=== PATIENT | female | born 1955 | race Caucasian/White ===

== ENCOUNTER 2017-01-10 20:08 | Emergency (ER) | payer OTHER, MEDICARE ==
[~2017-01-10] VITALS: Ht 167.6 cm; Wt 102.1 kg
[2017-01-10 20:21] VITALS: BP 122/79
[2017-01-10 20:41] LABS: ABSOLUTE BASOPHIL COUNT 0 /CUMM (0.0-0.2); ABSOLUTE EOSINOPHIL COUNT 0.1 /CUMM (0.0-0.7); ABSOLUTE GRANULOCYTE CT 4.6 /CUMM (1.4-6.5); ABSOLUTE LYMPH COUNT 0.6 /CUMM (1.2-3.4); ABSOLUTE MONOCYTE COUNT 0.3 /CUMM (0.10-0.60); BASOPHIL % 0.1 % (0.0-2.0); EOSINOPHIL % 2.1 % (0-5); HEMATOCRIT 33.5 % (37-47); MEAN CORPUSCULAR HGB 30.8 PG (27.0-31.0); MEAN CORPUSCULAR HGB CONC 33.5 G/DL (33.0-37.0); MEAN PLATELET VOLUME 7.6 FL (7.4-10.4); PLATELET COUNT 194 /CUMM (130-400); RED BLOOD CELL CT 3.64 /CUMM (4.20-5.40); WHITE BLOOD CELL COUNT 5.7 /CUMM (4.8-10.8)
--- NOTE | 2017-01-10 21:54 | ED GI/GU/ABDOMINAL COMPLAINT ---
History of Present Illness General Chief Complaint: Female Urogenital Problems Stated Complaint: UNABLE TO URINATE Source: patient Exam Limitations: no limitations Vital Signs & Intake/Output Vital Signs & Intake/Output Vital Signs Date Time Temp Pulse Resp B/P Pulse O2 O2 Flow FiO2 Ox Delivery Rate 01/10 2021 97.9 106 18 122/79 95 Room Air ED Intake and Output 01/11 0000 01/10 1200 Intake Total Output Total Balance Patient 225 lb Weight Allergies Coded Allergies: clarithromycin (From BIAXIN) (HEADACHE 01/10/17) codeine (DIZZY, NAUSEA 01/10/17) ramelteon (From ROZEREM) (UNKNOWN 12/24/15) risperidone (From RISPERDAL) (UNKNOWN 12/24/15) Reconcile Medications Carisoprodol 350 MG TABLET 1 TAB PO TID MUSCLE SPASMS (Reported) Eszopiclone 2 MG TABLET 1 TAB PO QPM SLEEP (Reported) Gabapentin 400 MG CAPSULE 1 CAP PO 4XDAILY NERVE PAIN (Reported) Oxycodone HCl 10 MG TABLET 1 TAB PO Q8H PRN PAIN (Reported) Rosuvastatin Calcium (Crestor) 20 MG TABLET 1 TAB PO DAILY CHOLESTEROL ( Reported) Tamsulosin HCl (Flomax) 0.4 MG CAP.ER.24H 1 CAP PO DAILY URINE RETENTION Verapamil HCl (Verapamil ER) 240 MG CAP24H.PEL 1 CAP PO DAILY BP (Reported) Triage Note: PT TO ED C/O "ONLY ABLE TO DRIBBLE URINE SINCE LAST NIGHT" DENIES PAIN AT THIS TIME. "LAST LARGER QUANTITY OF URINE WAS 2 DAYS AGO" DENIES PAIN WITH URINATION Triage Nurses Notes Reviewed? yes ? N Is pt currently ? No Onset: Abrupt Duration: constant Timing: multiple episodes today Quality/Severity: fullness Severity Numbers: 2 Location: suprapubic Radiation: no radiation Activities at Onset: none HPI: Patient is a 61-year-old female with past medical history of hypertension and hyperlipidemia, and chronic pain currently on narcotic AND muscle relaxer who presents emergency stating that since last evening she's been complaining of scant urination production Positive of urgency and frequency of urination Does describe of abdominal fullness and bloating Patient is able tolerate by mouth denies any nausea or vomiting vaginal bleeding or discharge or back pain Denies any fever or chills (LEANN MOHR) Past History Travel History Traveled to [place] past 21 day No Medical History Any Pertinent Medical History? 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 No (LEANN MOHR) Review of Systems Review of Systems Constitutional: Reports: no symptoms. EENTM: Reports: no symptoms. Respiratory: Reports: no symptoms. Cardiovascular: Reports: no symptoms. GI: Reports: see HPI. Genitourinary: Reports: see HPI. Musculoskeletal: Reports: no symptoms. Skin: Reports: no symptoms. Neurological/Psychological: Reports: no symptoms. Hematologic/Endocrine: Reports: no symptoms. Immunologic/Allergic: Reports: no symptoms. All Other Systems: Reviewed and Negative (LEANN MOHR) Physical Exam Physical Exam General Appearance: no apparent distress, obese Gastrointestinal: normal bowel sounds, soft, MILD SUPRAPUBIC POINT TENDERNESS, NO RIGHT LOWER QUADRANT PAIN NO LEFT LOWER QUADRANT PAIN. Comments: Well-developed well-nourished person in no acute distress HEENT: Normal EENT exam, Neck: Supple, no lymphadenopathy, normal range of motion without pain or tenderness Back: Nontender, no CVA tenderness. Cardiovascular: Regular rate and rhythms no murmurs rubs or gallops, normal JVP Respiratory: Chest nontender. No respiratory distress.breath sounds clear to auscultation bilaterally Extremity: No edema, no calf tenderness to palpation, normal and equal pulses. Neuro: Alert oriented x3, motor sensory normal, Skin: No appreciable rash on exposed skin, skin is warm and dry. Psych: Mood and affect is normal, memory and judgment is normal. Core Measures ACS in differential dx? No Severe Sepsis Present: No Septic Shock Present: No (LEANN MOHR) Progress Differential Diagnosis: AAA, AMI, appendicitis, biliary colic, bowel obstruction , colon cancer, cholecystitis, diverticulitis, ectopic , endometritis, esophageal varices, gastritis, hepatitis, hernia, hemorrhoids, ischemic bowel, inflamm bowel dis, intrauterine , kidney stone, Jayda-Cory tear, ovarian cyst, ovarian torsion, pancreatitis, PID/cervicitis, peptic ulcer, PUD/ GERD, perforated viscous, SBO, threatened AB, UTI/pyelo Plan of Care: Orders Procedure Date/time Status Straight Cath 01/11 2208 Active CULTURE,URINE 01/10 2026 Active URINALYSIS 01/10 2026 Complete COMPREHENSIVE METABOLIC PANEL 01/10 2026 Complete CBC WITHOUT DIFFERENTIAL 01/10 2026 Complete Laboratory Tests 01/10/172044: Urine Color YEL, Urine Clarity CLEAR, Urine pH 7.0, Ur Specific [place] 1.020, Urine Protein NEG, Urine Ketones NEG, Urine Nitrite NEG, Urine Bilirubin NEG, Urine Urobilinogen 1.0, Ur Leukocyte Esterase NEG, Ur Microscopic SEDIMENT EXAMINED, Urine RBC 3-5, Urine WBC 1-3 H, Ur Epithelial Cells FEW, Urine Bacteria FEW H, Urine Hemoglobin SMALL H, Urine Glucose NEG 01/10/172033: Anion Gap 11, Estimated GFR > 60, BUN/Creatinine Ratio 25.0, Glucose 102 H, Calcium 9.7, Total Bilirubin 0.5, AST 22, ALT 38, Alkaline Phosphatase 95, Total Protein 6.6, Albumin 3.9, Globulin 2.7, Albumin/Globulin Ratio 1.4, CBC w Diff NO MAN DIFF REQ, RBC 3.64 L, MCV 92.0, MCH 30.8, RDW 15.0 H, MPV 7.6, Gran % 81.0 H, Lymphocytes % 10.6 L, Monocytes % 6.2, Eosinophils % 2.1, Basophils % 0.1, Absolute Granulocytes 4.6, Absolute Lymphocytes 0.6 L, Absolute Monocytes 0.3, Absolute Eosinophils 0.1, Absolute Basophils 0, PUBS MCHC 33.5 Microbiology 01/10 2045 URINE ROUT: Urine Culture - RECD Patient currently is in no apparent distress, Patient was able to produce urine while in the emergency room 01/10/2017 10:36:50 PM again was able to urinate for second time in the emergency room. Patient had a Powers straight catheter placed and which 200 mL of straw-colored urine was removed patient also had significant resolution of suprapubic fullness. Upon discharge patient looks well no apparent distress patient has no right lower quadrant pain or appendicitis at this time. Patient was strongly advised to follow up with urology and she will comply (LEANN MOHR) Initial ED EKG: none (LEANN MOHR) Departure Departure Disposition: HOME OR SELF CARE Condition: Stable Clinical Impression Primary Impression: Urinary retention Referrals: ALLISON JACKSON,ALEM ROBERTSON MD,SHANA (PCP/Family) Additional Instructions: Tomorrow if symptoms still continue follow-up with urologist Dr. RAO'S. Please try to limit the use of pain medication as this may be a cause of YOUR symptoms. If symptoms worsen return to the emergency room. Begin the PRESCRIPTION of Flomax as directed for your symptoms. If symptoms worsen return to emergency room Departure Forms: Customer Survey General Discharge Information Prescriptions: Current Visit Scripts Tamsulosin HCl (Flomax) 1 CAP PO DAILY #20 CAP (LEANN MOHR) PA/TRANSPLANT CASE MANAGER Co-Sign Statement Statement: ED Attending supervision documentation- [X] I saw and evaluated the patient. I have also reviewed all the pertinent lab results and diagnostic results. I agree with the findings and the plan of care as documented in the PA's/TRANSPLANT CASE MANAGER's documentation. [X] I have reviewed the ED Record and agree with the PA's/TRANSPLANT CASE MANAGER's documentation. [] Additions or exceptions (if any) to the PAs/TRANSPLANT CASE MANAGER's note and plan are summarized below: [] (HIEU JACKSON,BILL Dunn)
[2017-01-10] MEDS ORDERED: OXYCODONE HCL10 M2 PO (22:07)
[2017-01-10] MEDS ORDERED: CARISOPRODOL350 M1 PO (22:07)
[2017-01-10] MEDS ORDERED: CRESTOR20 M2 PO (22:08)
[2017-01-10] MEDS ORDERED: ESZOPICLONE2 M1 PO (22:08)
[2017-01-10] MEDS ORDERED: GABAPENTIN400 M2 PO (22:08)
[2017-01-10] MEDS ORDERED: VERAPAMIL ER240 MG PO (22:08)
[2017-01-10] MEDS ORDERED: FLOMAX0.4 M1 PO (23:06)
== END 2017-01-10 23:13 ==
LOC: ERH 20:08
PROVIDERS: Emergency Medicine
DX: R33.9 Retention of urine, unspecified (principal)
CPT/HCPCS: 81001; 87086

== ENCOUNTER 2017-02-20 03:39 | Emergency (ER) | payer OTHER, MEDICARE ==
[~2017-02-20] VITALS: Ht 167.6 cm; Wt 98.4 kg
[~2017-02-20 03:39] MED LIST: CARISOPRODOL350 M1 PO; CRESTOR20 M2 PO; ESZOPICLONE2 M1 PO; FLOMAX0.4 M1 PO; GABAPENTIN400 M2 PO; OXYCODONE HCL10 M2 PO; VERAPAMIL ER240 MG PO
--- NOTE | 2017-02-20 03:49 | ED SYNCOPE COMPLAINT ---
See Addendum History of Present Illness General Chief Complaint: General Adult Stated Complaint: NEAR SYNCOPE, NOSE BLEED Source: patient Exam Limitations: no limitations Vital Signs & Intake/Output Vital Signs & Intake/Output Vital Signs Date Time Temp Pulse Resp B/P B/P Pulse O2 O2 Flow FiO2 Mean Ox Delivery Rate 02/20 1054 101 151/71 02/20 1007 99.2 80 20 157/72 96 Room Air 02/20 0844 99.0 78 20 145/61 96 Room Air 02/20 0753 97.0 80 20 149/67 98 Room Air 02/20 0625 96.7 89 18 147/67 97 Room Air 02/20 0407 Room Air 02/20 0347 96.8 79 18 139/77 95 Room Air Allergies Coded Allergies: clarithromycin (From BIAXIN) (HEADACHE 01/10/17) codeine (DIZZY, NAUSEA 01/10/17) ramelteon (From ROZEREM) (UNKNOWN 12/24/15) risperidone (From RISPERDAL) (UNKNOWN 12/24/15) Reconcile Medications Carisoprodol 350 MG TABLET 1 TAB PO TID MUSCLE SPASMS (Reported) Eszopiclone 2 MG TABLET 1 TAB PO QPM SLEEP (Reported) Gabapentin 400 MG CAPSULE 1 CAP PO 4XDAILY NERVE PAIN (Reported) Oxycodone HCl 10 MG TABLET 1 TAB PO Q8H PRN PAIN (Reported) Rosuvastatin Calcium (Crestor) 20 MG TABLET 1 TAB PO DAILY CHOLESTEROL ( Reported) Tamsulosin HCl (Flomax) 0.4 MG CAP.ER.24H 1 CAP PO DAILY URINE RETENTION Verapamil HCl (Verapamil ER) 240 MG CAP24H.PEL 1 CAP PO DAILY BP (Reported) Triage Note: PT BIBA FROM HOME C/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 PT SOB, STATES FEELS A LITTLE LIGHT HEADED. 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 DR TAYLOR AT BEDSIDE TO FE PT ON PT ARRIVAL TO ROOM Triage Nurses Notes Reviewed? yes Timing: recent history Precipitating Factors: lightheadedness Context: s/p surgery for deviated septum yesterday Episode Description: see below Loss of Consciousness: brief (seconds) Associated Symptoms: lightheadedness HPI: 62 yo woman h/o deviated septum repair yesterday, presents with epistaxis and syncopal episode. She notes, "I had surgery yesterday for a deviated septum... The surgery went fine, but I found myself bleeding this morning.... I stood up from a chair... I started feeling dizzy and lightheaded.... And then I pased out." She notes no palpitations, chest pressure, chest pain. She now is feeling well. (DEEP JACKSON,SYED Orantes) Past History Travel History Traveled to [place] past 21 day No Medical History Any Pertinent Medical History? 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 No (DEEP JACKSON,SYED Orantes) Review of Systems Review of Systems Constitutional: Reports: no symptoms. EENTM: Reports: no symptoms. Respiratory: Reports: no symptoms. Cardiovascular: Reports: no symptoms. GI: Reports: no symptoms. Genitourinary: Reports: no symptoms. Musculoskeletal: Reports: no symptoms. Skin: Reports: no symptoms. Neurological/Psychological: Reports: no symptoms. All Other Systems: Reviewed and Negative (DEEP JACKSON,SYED Orantes) Physical Exam Physical Exam General Appearance: well developed/nourished, mild distress Head: atraumatic, normal appearance Eyes: Bilateral: normal appearance. Ears, Nose, Throat: both nares are packed... left nare.. no bleeding...... right nare, mild oozing blood. Neck: normal inspection, supple, full range of motion Respiratory: normal breath sounds, chest non-tender, no respiratory distress, quiet respiration, lungs clear Cardiovascular: regular rate/rhythm Gastrointestinal: normal bowel sounds, soft, non-tender, no organomegaly Back: normal inspection Extremities: normal inspection, normal capillary refill, normal range of motion, no edema Psychiatric: awake, alert, oriented x 3 Cranial Nerves: normal hearing, normal speech Motor/Sensory: motor deficit, sensory deficit, pronator drift Skin: intact, normal color, warm/dry Core Measures ACS in differential dx? No CVA/TIA Diagnosis: No Severe Sepsis Present: No Septic Shock Present: No (DEEP JACKSON,SYED Orantes) Progress Differential Diagnosis: aortic valve, seizure, vasodepressor syncope Plan of Care: Orders Procedure Date/time Status TROPONIN LEVEL 02/21 740 Complete EKG 02/21 740 Active TROPONIN LEVEL 02/20 349 Complete COMPREHENSIVE METABOLIC PANEL 02/20 349 Complete CBC WITHOUT DIFFERENTIAL 02/20 349 Complete EKG 02/20 349 Active Laboratory Tests 02/20/17 0745: Troponin I < 0.01 02/20/17 0439: Anion Gap 15, Estimated GFR > 60, BUN/Creatinine Ratio 30.0 H, Glucose 98, Calcium 10.0, Total Bilirubin 0.4, AST 28, ALT 30, Alkaline Phosphatase 96, Troponin I < 0.01, Total Protein 7.4, Albumin 4.5, Globulin 2.9, Albumin/ Globulin Ratio 1.6 02/20/17 0359: CBC w Diff NO MAN DIFF REQ, RBC 3.85 L, MCV 90.8, MCH 31.1 H, RDW 13.4, MPV 7.7, Gran % 65.7, Lymphocytes % 27.2, Monocytes % 5.9, Eosinophils % 0.6, Basophils % 0.6, Absolute Granulocytes 5.2, Absolute Lymphocytes 2.2, Absolute Monocytes 0.5, Absolute Eosinophils 0, Absolute Basophils 0, PUBS MCHC 34.2 Diagnostic Imaging: Viewed by Me: Radiology Read, CT Scan. Discussed w/RAD: Radiology Read, CT Scan. Radiology Impression: head ct... neg...full report below. CXR Impression: no acute abnormality, no infiltrates, normal size heart, normal mediastinum Initial ED EKG: flattened t waves, v3-v6, flipped T III, new from prior ekg. Hand-Off Endorsed To: TOM JACSKON,IRVING Holguin Endorsed Time: 0700 Pending: consult, labs Comments: PATIENT: NOLVIA MAYER PRESENT AGE: 62 PATIENT ACCOUNT NO: [id number] : 56 LOCATION: [facility] ORDERING PHYSICIAN: SYED TAYLOR MD SERVICE DATE: 02/20/17 EXAM TYPE: RAD - XRY-PORTABLE CHEST XRAY EXAMINATION: XR PORTABLE CHEST CLINICAL INFORMATION: Syncope COMPARISON: 03/06/2008 TECHNIQUE: Portable frontal view of the chest was obtained. FINDINGS: The lungs are well expanded. There is no focal consolidation, edema, or effusion. No pneumothorax. The cardiomediastinal silhouette is within normal limits. No acute osseous abnormality. IMPRESSION: Clear lungs. DICTATED BY: SHANE OLVERA MD DATE/TIME DICTATED:02/20/17441 AVIATION SAFETY EQUIPMENT TECHNICIAN:ELEANOR DATE/TIME TRANSCRIBED:02/20/17441 CONFIDENTIAL, DO NOT COPY WITHOUT APPROPRIATE AUTHORIZATION. <Electronically signed in Other Vendor System> SIGNED BY: SHANE OLVERA MD 02/20 PATIENT: NOLVIA MAYER PRESENT AGE: 62 PATIENT ACCOUNT NO: [id number] : 56 LOCATION: [facility] ORDERING PHYSICIAN: SYED TAYLOR MD SERVICE DATE: 02/20/17 EXAM TYPE: CAT - CT HEAD WO IV CONTRAST EXAMINATION: CT HEAD WITHOUT CONTRAST CLINICAL INFORMATION: Syncope. Hit head. COMPARISON: 09/16/2016 TECHNIQUE: Contiguous axial imaging was performed from the skull base to vertex without intravenous contrast. DLP: 619 mGy-cm. FINDINGS: There is no evidence of acute intracranial hemorrhage or territorial infarction. No abnormal mass effect or midline shift is seen. Mast to white matter differentiation is well preserved. No extra-axial fluid collections are identified. No hydrocephalus. Proportional prominence of the ventricles and sulcal spaces is consistent with mild volume loss. There is no abnormal attenuation within the brain parenchyma. The osseous structures and soft tissues are normal. The mastoid air cells are well aerated. Small air-fluid level in the right sphenoid sinus. Mild opacification of the right ethmoid air cells. The remaining paranasal sinuses which are visualized are unremarkable. IMPRESSION: No acute intracranial pathology. DICTATED BY: SHANE OLVERA MD DATE/TIME DICTATED:02/20/17424 AVIATION SAFETY EQUIPMENT TECHNICIAN:ELEANOR DATE/TIME TRANSCRIBED:02/20/17424 CONFIDENTIAL, DO NOT COPY WITHOUT APPROPRIATE AUTHORIZATION. <Electronically signed in Other Vendor System> SIGNED BY: SHANE OLVERA MD 02/20 7821 (DEEP JACKSON,SYED Orantes) Repeat EKG: unchanged Comments: 02/20/2017 7:34:26 AM patient signed out to me by Dr. Taylor at shift twisting frame changer. 02/20/2017 10:02:47 AM I have reevaluated Nolvia and although she is experiencing more bleeding from her septoplasty and thought normal (per her discussion with her ear nose and throat doctors nurse) she is otherwise without specific complaint. I have just contacted Dr. Butt who will evaluate Nolvia as soon as possible, he is beginning his morning rounds). 02/20/2017 12:03:57 PM patient has been evaluated by Dr. Butt and he will follow-up in his office with Nolvia. I have also discussed her case with Dr. Churchill covering for Dr. Stack, who feels the patient can try some Afrin nasal spray to help control bleeding but that she should expect some postoperative bleeding. She should follow-up in Dr. Stack's office. (TOM JACKSON,IRVING Holguin) Departure Departure Disposition: HOME OR SELF CARE Condition: Stable Referrals: SHANA ROBERTSON MD (PCP/Family) Departure Forms: Customer Survey General Discharge Information Comments 02/20/17, 5:54am.... pt with change in EKG from baseline... discussed with dr. Butt who will evaluate patient in ED. Will also repeat troponin/ekg. continue iv fluids. (DEEP JACKSON,SYED Orantes) Departure Clinical Impression Primary Impression: Vasovagal syncope Secondary Impressions: Epistaxis Additional Instructions: Afrin nasal spray to help control bleeding. Expect that he will have some postoperative bleeding over the next few days. Continue to change the gauze pads in the front of the nose as necessary. Follow-up with Dr. Butt as discussed. Notify your primary care doctor of this emergency department visit and treatment plan. Return if any concerns or sudden worsening. Thank you for choosing the [facility] Emergency Department for your care. It was a pleasure to serve you today. Irving Valdivia M.D. [facility] (TOM JACKSON,IRVING Holguin)
[2017-02-20 04:24] LABS: ABSOLUTE BASOPHIL COUNT 0 /CUMM (0.0-0.2); ABSOLUTE EOSINOPHIL COUNT 0 /CUMM (0.0-0.7); ABSOLUTE GRANULOCYTE CT 5.2 /CUMM (1.4-6.5); ABSOLUTE LYMPH COUNT 2.2 /CUMM (1.2-3.4); ABSOLUTE MONOCYTE COUNT 0.5 /CUMM (0.10-0.60); BASOPHIL % 0.6 % (0.0-2.0); EOSINOPHIL % 0.6 % (0-5); GRANULOCYTE % 65.7 % (42.2-75.2); HEMATOCRIT 34.9 % (37-47); MEAN CORPUSCULAR HGB 31.1 PG (27.0-31.0); MEAN CORPUSCULAR HGB CONC 34.2 G/DL (33.0-37.0); MEAN CORPUSCULAR VOLUME 90.8 FL (81.0-99.0); MEAN PLATELET VOLUME 7.7 FL (7.4-10.4); PLATELET COUNT 333 /CUMM (130-400); RBC DISTRIBUTION WIDTH 13.4 % (11.5-14.5); RED BLOOD CELL CT 3.85 /CUMM (4.20-5.40); WHITE BLOOD CELL COUNT 7.9 /CUMM (4.8-10.8)
--- NOTE | 2017-02-20 04:35 | CT SCAN REPORT ---
EXAMINATION: CT HEAD WITHOUT CONTRAST CLINICAL INFORMATION: Syncope. Hit head. COMPARISON: 09/16/2016 TECHNIQUE: Contiguous axial imaging was performed from the skull base to vertex without intravenous contrast. DLP: 619 mGy-cm. FINDINGS: There is no evidence of acute intracranial hemorrhage or territorial infarction. No abnormal mass effect or midline shift is seen. Mast to white matter differentiation is well preserved. No extra-axial fluid collections are identified. No hydrocephalus. Proportional prominence of the ventricles and sulcal spaces is consistent with mild volume loss. There is no abnormal attenuation within the brain parenchyma. The osseous structures and soft tissues are normal. The mastoid air cells are well aerated. Small air-fluid level in the right sphenoid sinus. Mild opacification of the right ethmoid air cells. The remaining paranasal sinuses which are visualized are unremarkable. IMPRESSION: No acute intracranial pathology.
--- NOTE | 2017-02-20 04:45 | RADIOLOGY REPORT ---
EXAMINATION: XR PORTABLE CHEST CLINICAL INFORMATION: Syncope COMPARISON: 03/06/2008 TECHNIQUE: Portable frontal view of the chest was obtained. FINDINGS: The lungs are well expanded. There is no focal consolidation, edema, or effusion. No pneumothorax. The cardiomediastinal silhouette is within normal limits. No acute osseous abnormality. IMPRESSION: Clear lungs.
[2017-02-20 10:54] VITALS: BP 151/71
[2017-02-20] MEDS ORDERED: PERCOCET 5-3251 EACH PO (12:27)
--- NOTE | 2017-02-20 13:56 | Cons- Cardiology ---
General Information and HPI Consulting Request Date of Consult: 02/20/17 Requested By: Dr. Taylor Reason for Consult: Syncope Source of Information: patient, family Exam Limitations: no limitations History of Present Illness: The patient is a very nice 62-year-old white female who is followed by Dr. Felix in [place]. On Tuesday, the patient had a septoplasty performed at [facility] [place]. Apparently the surgery went fine. She left with nasal packing. On Tuesday morning, the patient woke with ongoing bleeding noted. At that time, the patient was feeling somewhat lightheaded and weak. Her notes that she stood up from her chair and in the process of starting to walk, she became lightheaded and passed out. She woke shortly after lying on the floor. She was brought to the emergency room and evaluated. There was no evidence of any other cardiac symptoms. There was no chest discomfort shorts of breath palpitations etc. Since arrival in the emergency room, there has been no evidence of any arrhythmias on the lunchroom monitor. I was asked see the patient for further evaluation of her syncopal episode. At the moment, the patient is feeling well. Her primary concern is her ongoing nasal bleeding. Allergies/Medications Allergies: Coded Allergies: clarithromycin (From BIAXIN) (HEADACHE 01/10/17) codeine (DIZZY, NAUSEA 01/10/17) ramelteon (From ROZEREM) (UNKNOWN 12/24/15) risperidone (From RISPERDAL) (UNKNOWN 12/24/15) Home Med List: Carisoprodol 350 MG TABLET 1 TAB PO TID MUSCLE SPASMS (Reported) Eszopiclone 2 MG TABLET 1 TAB PO QPM SLEEP (Reported) Gabapentin 400 MG CAPSULE 1 CAP PO 4XDAILY NERVE PAIN (Reported) Oxycodone HCl 10 MG TABLET 1 TAB PO Q8H PRN PAIN (Reported) Oxycodone HCl/Acetaminophen (Percocet 5-325 MG Tablet) 5 MG-325 MG TABLET 1 TAB PO Q6P PRN pain Rosuvastatin Calcium (Crestor) 20 MG TABLET 1 TAB PO DAILY CHOLESTEROL ( Reported) Tamsulosin HCl (Flomax) 0.4 MG CAP.ER.24H 1 CAP PO DAILY URINE RETENTION Verapamil HCl (Verapamil ER) 240 MG CAP24H.PEL 1 CAP PO DAILY BP (Reported) Current Medications: Current Medications Sig/Cathie Start time Last Medication Dose Route Stop Time Status Admin Oxycodone/ 0 .STK-MED ONE 02/20 0921 DC Acetaminophen PO Oxycodone/ 1 TAB ONCE ONE 02/20 0900 DC 02/20 Acetaminophen PO 02/20 0901 0916 Oxycodone/ 0 .STK-MED ONE 02/20 0651 DC Acetaminophen PO Oxycodone/ 1 TAB ONCE ONE 02/20 0645 DC 02/20 Acetaminophen PO 02/20 0646 0648 Sodium Chloride 1,000 ML BOLUS ONE 02/20 0400 DC 02/20 IV 02/20 0459 0358 Past History Travel History Traveled to [place] past 21 day No Medical History Neurological: NONE EENT: NONE Cardiovascular: hypertension, hyperlipidemia, THORACIC OUTLET SYNDROME Respiratory: NONE Gastrointestinal: NONE Hepatic: NONE Renal: NONE Musculoskeletal: CHRONIC RT SHOULDER PAIN Psychiatric: NONE Endocrine: NONE Blood Disorders: NONE Cancer(s): NONE CHIEF NURSE/Reproductive: NONE Surgical History Surgical History: non-contributory Exam & Diagnostic Data Vital Signs and I&O Vital Signs Date Time Temp Pulse Resp B/P B/P Pulse O2 O2 Flow FiO2 Mean Ox Delivery Rate 02/20 1054 101 151/71 02/20 1007 99.2 80 20 157/72 96 Room Air 02/20 0844 99.0 78 20 145/61 96 Room Air 02/20 0753 97.0 80 20 149/67 98 Room Air 02/20 0625 96.7 89 18 147/67 97 Room Air 02/20 0407 Room Air 02/20 0347 96.8 79 18 139/77 95 Room Air Intake & Output 02/20 1600 02/20 0802/20 0000 02/19 1600 02/19 0802/19 0000 Intake Total 500 Output Total Balance 500 Intake, IV 500 Patient 217 lb Weight Weight Reported by Patient Measurement Method Physical Exam: General Appearance: well developed/nourished, mild distress Head: atraumatic, normal appearance Eyes: Normal Ears, Nose, Throat: both nares are packed... left nare.. no bleeding...... right nare, mild oozing blood. Neck: normal inspection, supple, full range of motion, JVP normal, carotid upstroke normal bilaterally Respiratory: normal breath sounds, chest non-tender, no respiratory distress, quiet respiration, lungs clear Cardiovascular: regular rate/rhythm, 6 systolic murmur left upper sternal border Gastrointestinal: normal bowel sounds, soft, non-tender, no organomegaly Extremities: normal inspection, normal capillary refill, normal range of motion, no edema Neurologic: Nonfocal Skin: Normal Labs/Narinder Results: Laboratory Tests 02/20 02/20 02/20 0745 0439 0359 Chemistry Sodium (137 - 145 mmol/L) 139 Potassium (3.5 - 5.1 mmol/L) 3.5 Chloride (98 - 107 mmol/L) 99 Carbon Dioxide (22 - 30 mmol/L) 25 Anion Gap (5 - 16) 15 BUN (7 - 17 mg/dL) 18 H Creatinine (0.5 - 1.0 mg/dL) 0.6 Estimated GFR (>60 ml/min) > 60 BUN/Creatinine Ratio (7 - 25 %) 30.0 H Glucose (65 - 99 mg/dL) 98 Calcium (8.4 - 10.2 mg/dL) 10.0 Total Bilirubin (0.2 - 1.3 mg/dL) 0.4 AST (14 - 36 U/L) 28 ALT (9 - 52 U/L) 30 Alkaline Phosphatase (<127 U/L) 96 Troponin I (< 0.11 ng/ml) < 0.01 < 0.01 Total Protein (6.3 - 8.2 g/dL) 7.4 Albumin (3.5 - 5.0 g/dL) 4.5 Globulin (1.9 - 4.2 gm/dL) 2.9 Albumin/Globulin Ratio (1.1 - 2.2 %) 1.6 Hematology CBC w Diff NO MAN DIFF REQ WBC (4.8 - 10.8 /CUMM) 7.9 RBC (4.20 - 5.40 /CUMM) 3.85 L Hgb (12.0 - 16.0 G/DL) 11.9 L Hct (37 - 47 %) 34.9 L MCV (81.0 - 99.0 FL) 90.8 MCH (27.0 - 31.0 PG) 31.1 H RDW (11.5 - 14.5 %) 13.4 Plt Count (130 - 400 /CUMM) 333 MPV (7.4 - 10.4 FL) 7.7 Gran % (42.2 - 75.2 %) 65.7 Lymphocytes % (20.5 - 51.1 %) 27.2 Monocytes % (1.7 - 9.3 %) 5.9 Eosinophils % (0 - 5 %) 0.6 Basophils % (0.0 - 2.0 %) 0.6 Absolute Granulocytes (1.4 - 6.5 /CUMM) 5.2 Absolute Lymphocytes (1.2 - 3.4 /CUMM) 2.2 Absolute Monocytes (0.10 - 0.60 /CUMM) 0.5 Absolute Eosinophils (0.0 - 0.7 /CUMM) 0 Absolute Basophils (0.0 - 0.2 /CUMM) 0 PUBS MCHC (33.0 - 37.0 G/DL) 34.2 Diagnostic Data EKG Results Normal sinus rhythm with nonspecific ST-T wave changes, the ST-T changes are slightly more pronounced than her prior available EKG from 2007. No other acute changes. CXR Results FINDINGS: The lungs are well expanded. There is no focal consolidation, edema, or effusion. No pneumothorax. The cardiomediastinal silhouette is within normal limits. No acute osseous abnormality. IMPRESSION: Clear lungs. Assessment/Plan Assessment/Plan Assessment: 1. Syncope-the patient's symptoms and presentation are most consistent with orthostatic or vasovagal syncope. I suspect this is multifactorial, related to her recent anesthesia, recent surgical procedure, lack of significant oral intake over the 24 hours prior to the event, ongoing issues with her nose and surgical bleeding, etc. On arrival to the emergency him, the patient was initially noted to be mildly orthostatic on assuming the sitting position with a lying blood pressure 142 and day sitting systolic blood pressure of 122. She was not able to stand at that time. Following 1 L of IV normal saline, she is currently stable with no evidence of any orthostatic changes. Her heart rate and rhythm at been stable throughout her stay here. At the moment, I do not see any evidence of any other significant acute cardiac issues. 2. History of hypertension 2. History of hyperlipidemia 4. Recent septoplasty with ongoing surgical site bleeding. Recommendations: -At the moment, the patient's ECG shows nonspecific changes and is not dramatically changed from her prior EKG of 9 years ago. In line-the patient has no other ongoing cardiac symptoms. -I discussed the situation in detail with the patient and her . -I would recommend allowing the patient ambulate with monitoring. If she remains stable and she can be discharged for follow-up with me as necessary as an outpatient. -In view of the ongoing bleeding from the patient's nose, I would consider discussing the situation with the patient's ENT surgeon prior to discharge from the emergency room. -The patient was instructed to take it easy for the next 2 days at home and maintain adequate hydration and avoid acute changes in position with close monitoring for any further lightheadedness. I gave the patient copy of my card with phone number so that she can contact me with any issues. Consult Acknowledgment - Thank you for your consult request.
--- NOTE | 2017-03-03 09:50 | OP PSYCH DISCHARGE ---
OUTPATIENT PSYCH DISCHARGE FIRST APPOINTMENT DATE: 08/06/08 LAST CONTACT DATE: 01/30/16 FOCUS OF TREATMENT- SYMPTOMS/ISSUES: -depressed mood -paranoid delusions TOTAL NUMBER OF SESSIONS: > 20 SESSIONS TYPE OF TREATMENT: INDIVIDUAL, MEDICATION STATUS OF LAST CONTACT: FOCUS OF TREATMENT WAS: RESOLVED REASON FOR DISCHARGE: MISSED APPOINTMENTS, NO FURTHER CONTACT DSM5/PS Stressors/Medical Prob Diagnosis' (DSM 5, Stressors, Medical): MDD,reccurent,severe,with psychotic features-in remission -financial problems, worsening of chronic pain Chronic pain HTN Current GAF: 70% Medication List Current Psychiatric Med(s): Zyprexa 5 mg po qhs Prozac 40 mg po bid
== END 2017-02-20 12:38 ==
LOC: ERH 03:39
PROVIDERS: Pediatrics
DX: R55 Syncope and collapse (principal); R04.0 Epistaxis; I10 Essential (primary) hypertension
CPT/HCPCS: 93005; 93010

== ENCOUNTER 2017-09-26 04:17 | Inpatient (IN) | payer OTHER, MEDICARE ==
[~2017-09-26] VITALS: Ht 167.6 cm; Wt 102.1 kg
[~2017-09-26 04:17] MED LIST changes: +PERCOCET 5-3251 EACH PO
--- NOTE | 2017-09-26 04:19 | ED AMS/SEIZURE/WEAK/DIZZY ---
History of Present Illness General Chief Complaint: Dizziness Stated Complaint: BIBA SYNCOPE Source: patient, EMS Exam Limitations: clinical condition Vital Signs & Intake/Output Vital Signs & Intake/Output Vital Signs Date Time Temp Pulse Resp B/P B/P Pulse O2 O2 Flow FiO2 Mean Ox Delivery Rate 09/26 0543 98.3 70 20 123/69 96 Nasal 2.0L Cannula 09/26 0446 120/70 09/26 0420 98.1 82 20 95 Room Air Allergies Coded Allergies: clarithromycin (From BIAXIN) (HEADACHE 01/10/17) codeine (DIZZY, NAUSEA 01/10/17) ramelteon (From ROZEREM) (UNKNOWN 12/24/15) risperidone (From RISPERDAL) (UNKNOWN 12/24/15) Reconcile Medications Amoxicillin 500 MG CAPSULE 500 MG PO DAILY RESPIRATORY INFECTION (Reported) Carisoprodol 350 MG TABLET 1 TAB PO TID MUSCLE SPASMS (Reported) Eszopiclone 2 MG TABLET 1 TAB PO QPM SLEEP (Reported) Gabapentin 400 MG CAPSULE 1 CAP PO 4XDAILY NERVE PAIN (Reported) Gabapentin (Neurontin) 800 MG TABLET 800 MG PO TID NERVE PAIN (Reported) Losartan (Cozaar) 100 MG TABLET (Unknown Dose) PO DAILY HIGH BLOOD PRESSURE ( Reported) Oxycodone HCl 10 MG TABLET 1 TAB PO Q8H PRN PAIN (Reported) Oxycodone HCl/Acetaminophen (Percocet 5-325 MG Tablet) 5 MG-325 MG TABLET 1 TAB PO Q6P PRN pain Rosuvastatin Calcium (Crestor) 20 MG TABLET 1 TAB PO DAILY CHOLESTEROL ( Reported) Tamsulosin HCl (Flomax) 0.4 MG CAP.ER.24H 1 CAP PO DAILY URINE RETENTION Verapamil HCl (Verapamil ER) 240 MG CAP24H.PEL 1 CAP PO DAILY BP (Reported) Triage Nurses Notes Reviewed? yes HPI: 62 yo woman presents with weakness. She shares that she has been feeling unwell x 5-6 days, with a mild cough, decreased oral intake. She was started on amoxicillin 3 days ago. Yesterday, she felt weak and dizzy "all day long.... I didn't have an appetite... I would stand up and get dizzy... I felt like I might pass out." She denies loss of consciousness or head injury. She denies chest pain, fever, chills, dysuria, abdominal pain, dyspnea. Her cough is mostly dry. Past History Medical History Any Pertinent Medical History? see below for history Neurological: NONE EENT: NONE Cardiovascular: hypertension, hyperlipidemia, THORACIC OUTLET SYNDROME Respiratory: NONE Gastrointestinal: NONE Hepatic: NONE Renal: NONE Musculoskeletal: CHRONIC RT SHOULDER PAIN Psychiatric: NONE Endocrine: NONE Blood Disorders: NONE Cancer(s): NONE RADARMAN/Reproductive: NONE Surgical History Surgical History: non-contributory Psychosocial History Who do you live with Other (see notes) What is your primary language German Family History Hx Contributory? No Review of Systems Review of Systems Constitutional: Reports: no symptoms. EENTM: Reports: no symptoms. Respiratory: Reports: no symptoms. Cardiovascular: Reports: no symptoms. GI: Reports: no symptoms. Genitourinary: Reports: no symptoms. Musculoskeletal: Reports: no symptoms. Skin: Reports: no symptoms. Neurological/Psychological: Reports: no symptoms. Hematologic/Endocrine: Reports: no symptoms. Immunologic/Allergic: Reports: no symptoms. All Other Systems: Reviewed and Negative Physical Exam Physical Exam General Appearance: well developed/nourished, mild distress Head: atraumatic, normal appearance Eyes: Bilateral: normal appearance, PERRL, EOMI. Ears, Nose, Throat: normal pharynx, dry mucosa Neck: normal inspection, supple, full range of motion Respiratory: normal breath sounds, chest non-tender, no respiratory distress Cardiovascular: regular rate/rhythm Gastrointestinal: normal bowel sounds, soft, non-tender Back: normal inspection, normal range of motion Extremities: normal range of motion Neurologic/Psych: no motor/sensory deficits, awake, alert, oriented x 3 Skin: cool extremities. poor skin turgor. Core Measures ACS in differential dx? No CVA/TIA Diagnosis No Sepsis Present: No Sepsis Focused Exam Completed? No Progress Differential Diagnosis: dehydration, renal failure, electrolyte abnormality, i doubt cardiac issues. Plan of Care: Orders Procedure Date/time Status BASIC ELECTROLYTES PLUS BUN&CR 09/27 06 Active Heart Healthy Diet 09/26 B Active LACTIC ACID 09/26 0733 Active PT Evaluate & Treat 09/26 06 Active Pathway - chart 09/26 06 Active House Staff 09/26 06 Active Pathway - chart 09/26 06 Active URINE OSMOLALITY 09/26 06 Active URINE LYTES, SPOT 09/26 06 Active Patient Data 09/26 0615 Active EKG 09/26 0611 Active Saline Lock 09/26 0607 Active Misc Message 09/26 0607 Active ED Holding Orders 09/26 06 Active Admit to inpatient 09/26 0607 Active Vital Signs 09/26 0607 Active Code Status 09/26 0607 Active RAPID VIRAL INFLUENZA A 09/26 0548 Complete Intake & Output 09/26 0441 Active TSH REFLEX 09/26 0440 Active SERUM OSMOLALITY 09/26 0440 Active B-TYPE NATRIURETIC PEP (BNP) 09/26 0440 Active LACTIC ACID 09/26 0433 Complete TROPONIN LEVEL 09/26 0419 Active PARTIAL THROMBOPLASTIN TIME 09/26 0419 Complete PROTHROMBIN TIME 09/26 0419 Complete COMPREHENSIVE METABOLIC PANEL 09/26 0419 Active CBC WITHOUT DIFFERENTIAL 09/26 0419 Complete EKG 09/26 0418 Active Lab Add-on Test 09/26 UNK Active VTE Mechanical Prophylaxis 09/26 UNK Active Vital Signs 09/26 UNK Active MISTAKE 09/26 UNK Active Activity/Ambulation 09/26 UNK Active Current Medications Sig/Cathie Start time Last Medication Dose Stop Time Status Admin Heparin Sodium 5,000 UNIT Q8 09/26 1400 AC (Porcine) Laboratory Tests 09/26/17 0440: Lactic Acid 1.7 09/26/17 0440: Anion Gap 13, Estimated GFR > 60, BUN/Creatinine Ratio 20.0, Glucose 109 H, Serum Osmolality Pending, Calcium 10.1, Total Bilirubin 0.4, AST 27, ALT 34, Alkaline Phosphatase 109, Troponin I < 0.01, [id number] Pept Pending, Total Protein 8.0, Albumin 4.7, Globulin 3.3, Albumin/Globulin Ratio 1.4, TSH & T3 &Free T4 Intrp Pending, PT 11.0, INR 1.05, APTT 29, CBC w Diff NO MAN DIFF REQ, RBC 4.68, MCV 88.0, MCH 30.1, RDW 13.3, MPV 7.4, Gran % 57.7, Lymphocytes % 30.2, Monocytes % 9.0, Eosinophils % 2.7, Basophils % 0.4, Absolute Granulocytes 2.3, Absolute Lymphocytes 1.2, Absolute Monocytes 0.4, Absolute Eosinophils 0.1, Absolute Basophils 0, PUBS MCHC 34.3 Microbiology 09/26 0550 NASOPHARYN: Influenza Virus A & B Rapid Smear - COMP Diagnostic Imaging: Viewed by Me: Radiology Read. Discussed w/RAD: Radiology Read. CXR Impression: no acute abnormality, no infiltrates, normal size heart, normal mediastinum, PATIENT: NOLVIA MAYER PRESENT AGE: 62 PATIENT ACCOUNT NO: [id number] : 56 LOCATION: [facility] ORDERING PHYSICIAN: Eber Taylor MD SERVICE DATE: 09/26/17 EXAM TYPE: RAD - XRY- PORTABLE CHEST XRAY EXAMINATION: XR PORTABLE CHEST CLINICAL INFORMATION: Syncope. COMPARISON: Chest radiograph dated 02/20/2017. TECHNIQUE: Portable frontal view of the chest was obtained. FINDINGS: Cardiac leads overlie the chest. No focal consolidation or effusion. Cardiac mediastinal silhouette is within normal limits. No pneumothorax. No acute osseous abnormality. IMPRESSION: No focal consolidation or effusion. DICTATED BY: David Salcedo MD DATE/TIME DICTATED:09/26/17515 BRAND EXECUTIVE:ELEANOR DATE/TIME TRANSCRIBED:515 CONFIDENTIAL, DO NOT COPY WITHOUT APPROPRIATE AUTHORIZATION. < Electronically signed in Other Vendor System> SIGNED BY: David Salcedo MD 09/26/17520 Initial ED EKG: afib, but likely artifact... ekg #2... nsr without acute changes. Departure Departure Disposition: STILL A PATIENT Condition: Stable Clinical Impression Primary Impression: Hyponatremia Secondary Impressions: Dehydration, Weakness Referrals: Jonathan Cali MD (PCP/Family) Departure Forms: Customer Survey General Discharge Information Admission Note Spoke With: Mary Vasquez MDkathryn Documentation of Exam: Documentation of any treatments & extenuating circumstances including Concerns Regarding Discharge (functional status, medication knowledge or non-compliance, living conditions, etc.) that warrant an admission rather than observation: pt with hyponatremia, weakness, was orthostatic by symptoms... likely due to dehydration/hypovolemia, possibly due to viral etiology vs bacterial process ( cxr negative for pneumonia).... pt merits electrolyte management, iv fluids, could consider continuing her oral abx, but I doubt iv abx are necessary. I doubt cva or primary cardiac event.
[2017-09-26 04:56] LABS: ABSOLUTE BASOPHIL COUNT 0 /CUMM (0.0-0.2); ABSOLUTE EOSINOPHIL COUNT 0.1 /CUMM (0.0-0.7); ABSOLUTE GRANULOCYTE CT 2.3 /CUMM (1.4-6.5); ABSOLUTE LYMPH COUNT 1.2 /CUMM (1.2-3.4); ABSOLUTE MONOCYTE COUNT 0.4 /CUMM (0.10-0.60); BASOPHIL % 0.4 % (0.0-2.0); EOSINOPHIL % 2.7 % (0-5); GRANULOCYTE % 57.7 % (42.2-75.2); HEMATOCRIT 41.1 % (37-47); MEAN CORPUSCULAR HGB 30.1 PG (27.0-31.0); MEAN CORPUSCULAR HGB CONC 34.3 G/DL (33.0-37.0); MEAN PLATELET VOLUME 7.4 FL (7.4-10.4); PLATELET COUNT 193 /CUMM (130-400); RBC DISTRIBUTION WIDTH 13.3 % (11.5-14.5); RED BLOOD CELL CT 4.68 /CUMM (4.20-5.40)
[2017-09-26 05:05] LABS: PTT 29 SEC (25-37)
[2017-09-26] MEDS ORDERED: NEURONTIN800 M2 PO (05:12)
[2017-09-26] MEDS ORDERED: COZAAR100 M1 PO (05:13)
[2017-09-26] MEDS ORDERED: AMOXICILLIN500 M2 PO (05:13)
--- NOTE | 2017-09-26 05:21 | RADIOLOGY REPORT ---
EXAMINATION: XR PORTABLE CHEST CLINICAL INFORMATION: Syncope. COMPARISON: Chest radiograph dated 02/20/2017. TECHNIQUE: Portable frontal view of the chest was obtained. FINDINGS: Cardiac leads overlie the chest. No focal consolidation or effusion. Cardiac mediastinal silhouette is within normal limits. No pneumothorax. No acute osseous abnormality. IMPRESSION: No focal consolidation or effusion.
--- NOTE | 2017-09-26 06:26 | History & Physical ---
Jordi Lyle MDapna 09/26/17 0624: General Information and HPI MD Statement: I have seen and personally examined NOLVIA ALMAGUER and documented this H&P. The patient is a 62 year old F who presented with a patient stated chief complaint of [lightheadedness]. Source of Information: patient Exam Limitations: no limitations History of Present Illness: This is a 62-year-old lady with past medical history of hypertension, hyperlipidemia, thoracic outlet syndrome came to [facility] with complaints of multiple episodes of lightheadedness both at rest and on ambulation since one day. Apparently patient was in usual state of health until 3 days ago, following which she developed cough with minimal sputum production with no fever /chills. Patient went to walk-in clinic who suggested that she had an URI and gave her amoxicillin for 10 days. Apparently patient was taking amoxicillin for past 3 days with no improvement. Yesterday patient felt very lightheadedness and palpitation at rest and worsened during ambulation. She also felt her chest having a" rattling "sound. She also felt nauseous and increased sweating during the same time. She endorses decrease by mouth intake for the past 3 days. She denies chest pain, chest pressure, headache, recent urinary infection, ringing of ears, abdominal pain, fever, chills, sinusitis, back pain, hematuria, dysuria , altered bowel movement. Lately she has been having tingling and numbness both in her hands and feet. Of note patient was diagnosis prediabetes recently. Patient recently in January 2017 had septoplasty, following which she had similar episode of lightheadedness and had a negative evaluation by streaming media specialist. She had a ECHO done during the same., And was said to have abnormal valves. Patient was diagnosed with thoracic outlet syndrome 3 years [address] 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 She endorses constant nagging pain with tingling and numbness in her right arm. Allergies/Medications Allergies: Coded Allergies: clarithromycin (From BIAXIN) (HEADACHE 01/10/17) codeine (DIZZY, NAUSEA 01/10/17) ramelteon (From ROZEREM) (UNKNOWN 12/24/15) risperidone (From RISPERDAL) (UNKNOWN 12/24/15) Home Med list Amoxicillin 500 MG CAPSULE 500 MG PO DAILY RESPIRATORY INFECTION (Reported) Carisoprodol 350 MG TABLET 1 TAB PO TID MUSCLE SPASMS (Reported) Eszopiclone 2 MG TABLET 1 TAB PO QPM SLEEP (Reported) Gabapentin (Neurontin) 800 MG TABLET 800 MG PO TID NERVE PAIN (Reported) Hydrocodone/Acetaminophen (Hydrocodon-Acetaminophn 10-325) 10 MG-325 MG TABLET 1 TAB PO BID PRN PAIN (Reported) Losartan (Cozaar) 100 MG TABLET (Unknown Dose) PO DAILY HIGH BLOOD PRESSURE ( Reported) Rosuvastatin Calcium (Crestor) 20 MG TABLET 1 TAB PO DAILY CHOLESTEROL ( Reported) Verapamil HCl (Verapamil ER) 240 MG CAP24H.PEL 1 CAP PO DAILY BP (Reported) Compliance With Home Meds: GOOD Past History Travel History Traveled to [place] past 21 day No Medical History Neurological: NONE EENT: NONE Cardiovascular: hypertension, hyperlipidemia, THORACIC OUTLET SYNDROME Respiratory: NONE Gastrointestinal: NONE Hepatic: NONE Renal: NONE Musculoskeletal: CHRONIC RT SHOULDER PAIN Psychiatric: NONE Endocrine: NONE Blood Disorders: NONE Cancer(s): NONE 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 Home Who Do You Live With? spouse Services at Home: None Primary Language: South [place] Smoking Status: Never Smoked ETOH Use: denies use Illicit Drug Use: denies illicit drug use Functional Ability ADLs Independent: dressing, eating, toileting, bathing. Ambulation: independent IADLs Independent: shopping, housework, finances, food prep, telephone, transportation , medication admin. Review of Systems Review of Systems Constitutional: Reports: weakness. EENTM: Reports: no symptoms. Cardiovascular: Reports: palpitations. Respiratory: Reports: cough, wheezing. GI: Reports: nausea. Genitourinary: Reports: no symptoms. Musculoskeletal: Reports: no symptoms. Neurological/Psychological: Reports: numbness, paresthesia (light headedness). Hematologic/Endocrine: Reports: no symptoms. Exam & Diagnostic Data Last 24 Hrs of Vital Signs/I&O Vital Signs Date Time Temp Pulse Resp B/P B/P Pulse O2 O2 Flow FiO2 Mean Ox Delivery Rate 09/26 0543 98.3 70 20 123/69 96 Nasal 2.0L Cannula 09/26 0446 120/70 09/26 0420 98.1 82 20 95 Room Air Intake & Output 09/26 0800 09/26 0000 09/25 1600 Intake Total 0 Output Total Balance 0 Intake, Oral 0 Patient 225 lb Weight Weight Reported by Patient Measurement Method Physical Exam General Appearance Alert, Oriented X3, Cooperative, No Acute Distress Skin No Rashes, No Breakdown HEENT PERRLA Neck Supple, No JVD, No thryomegaly, No LAD Cardiovascular Normal S1, Normal S2, No Murmurs Lungs b/l rhonchi,wheeze Abdomen Soft, No Tenderness, No Hepatospenomegaly Neurological Normal Speech, Strength at 5/5 X4 Ext, Normal Tone, Sensation Intact, Cranial Nerves 3-12 NL Extremities No Edema, Normal Pulses Last 24 Hrs of Labs/Narinder: Laboratory Tests 09/26/17 0733: Lactic Acid Cancelled 09/26/17 0440: Lactic Acid 1.7 09/26/17 0440: Anion Gap 13, Estimated GFR > 60, BUN/Creatinine Ratio 20.0, Glucose 109 H, Serum Osmolality 255 L, Calcium 10.1, Total Bilirubin 0.4, AST 27, ALT 34, Alkaline Phosphatase 109, Troponin I < 0.01, Gag-Y-Ydhsrgrtgwk Pept 69.2, Total Protein 8.0, Albumin 4.7, Globulin 3.3, Albumin/Globulin Ratio 1.4, Free T4 Pending, TSH &T3 &Free T4 Intrp 4.740 H, Cortisol AM Sample Pending, PT 11.0, INR 1.05, APTT 29, CBC w Diff NO MAN DIFF REQ, RBC 4.68, MCV 88.0, MCH 30.1, RDW 13.3, MPV 7.4, Gran % 57.7, Lymphocytes % 30.2, Monocytes % 9.0, Eosinophils % 2.7, Basophils % 0.4, Absolute Granulocytes 2.3, Absolute Lymphocytes 1.2, Absolute Monocytes 0.4, Absolute Eosinophils 0.1, Absolute Basophils 0, PUBS MCHC 34.3 Microbiology 09/26 730 LOWER RESP: Respiratory Culture - ORD 09/26 730 LOWER RESP: Gram Stain - ORD 09/26 721 URINE ROUT: Legionella Antigen - ORD 09/26 721 URINE ROUT: Streptococcus pneumoniae Antigen (M - ORD 09/26 0550 NASOPHARYN: Influenza Virus A & B Rapid Smear - COMP Diagnostic Data EKG Results Sinus rhythm, QTC 451 CXR Results IMPRESSION: No focal consolidation or effusion. Assessment/Plan Assessment: This is a 62-year-old lady with past medical history of hypertension, hyperlipidemia, thoracic outlet syndrome came to [facility] with complaints of multiple episodes of lightheadedness and palpitations both at rest and on ambulation since one day admitted to [facility] in view of hyponatremia. Problem list 1. lightheadedness 2. Bronchitis 3. Hyponatremia 4. Hypertension 5. Hyperlipidemia 6. Thoracic outlet syndrome Assessment and plan 1. lightheadedness-can be secondary due to hyponatremia [decreased by mouth intake]/arrhythmia Patient was given 2 L of normal saline. We will repeat BEP at 10 AM. Trend troponins and EKG. Cardiology consult if needed. 2. Bronchitis Patient was treated with amoxicillin for the past 3 days with no improvement. We will watch her off antibiotics. TRC nebulization.guafenesin to help with cough. We will do a rapid flu, sputum culture, urine strep and Legionella antigen. 3. Hypertension We will hold her losartan and verapamil for now. 4. Hyperlipidemia We will continue Crestor. 5. Thoracic outlet syndrome We will continue her home dose of gabapentin. Code-full code DVT prophylaxis-heparin subcutaneous Diet-heart healthy diet As Ranked By This Provider Problem List: 1. Hyponatremia 2. Bronchitis Core Measures/Misc (06/12) Acute Coronary Syndrome ACS Diagnosis: No Congestive Heart Failure Congestive Heart Failure Diagnosis No Cerebrovascular Accident CVA/TIA Diagnosis: No VTE (View Protocol) VTE Risk Factors Age>40 No Mechanical VTE Prophylaxis d/t Other No VTE Pharm Prophylaxis d/t Other Sepsis (View protocol) Sepsis Present: No Fatou Martin 09/26/17 0923: Resident Review Statement Resident Statement: examined this patient, discussed with lab intern, agreed with lab intern, discussed with family, reviewed images, amended to note Other Findings: Ms Almaguer is a 62 year old woman who has a PMHx of HTN, HLD, thoracic outlet syndrome, ? valvular defect came in w/ chief concern of acute onset of nonproductive cough, runny nose 3 days ago, for which she was prescribed amoxicillin at an urgent care clinic. She reported decreased by mouth intake in the last 3 days, since she was sick, and did not have any improvement in her symptoms. She did not have any fever, shortness of breath, chest pain. In the last 24 hours or so, she reported being orthostatically dizzy, which progressed to being dizzy even at rest. She did not have any loss of consciousness, vision changes, seizures. She reported palpitations, which was posturally related. Nonsmoker, nonalcoholic, no drug abuse; no new medication use especially changes in gabapentin or opiates. No history of polydipsia, diuretic use. No diarrhea or vomiting reported. At the time of admission, temperature 98.3, pulse rate 70, respiration 20, blood pressure 123/69, pulse ox 96% on 2 L. On examination, she was comfortably lying in her bed; she had nasal cannula supplemental oxygen. No nystagmus. She was able to complete her sentences, and did not use any accessory muscles. Mucosal membranes appeared dry. Lung examination revealed bilateral rhonchi, with mild expiratory wheezes heard. No JVD. Cardiovascular examination was within normal limits, and no additional heart sounds or murmurs were heard. Neuro exam wnl. No tremors, cerebellar signs wnl. Pertinent lab findings-W BC 4.0, platelets 193, hemoglobin 14.1. Sodium 123 ( mild hyponatremia), which was normal 139 in 01/2017. Potassium 3.7, hypochloremia 80 (hypochloremia likely decreased solute intake). Renal function BUN 12, creatinine 0.6, bicarbonate 30 with anion gap of 13. Lactic acid 1.7. Cardiac enzyme-troponin 0.01. Liver chemistries were within normal limits. TSH 4.7, free T4 1.1. Cortisol AM is within normal limits. Influenza swab negative. Serum osmolality 255. Urine osmolality could not be measured, since the patient received fluids to these tests were ordered. Chest x-ray revealed increased lung markings on the right lower lobe. EKG revealed normal sinus rhythm, QTC 451, no ST-T wave changes were noted. Etiology in her case is likely acute bronchitis, that could be causing her respiratory symptoms for which she would need albuterol nebulizations. Other possible etiologies could be atypical pneumonia, especially Legionella that would explain hyponatremia in some ways. At this time would hold off on any antibiotics pending culture and urine antigen results. In regards to her hypotonic hyponatremia, it appears that she may have had decreased solute intake that caused acute relation of free water causing her symptoms. Other causes, such as hypothyroidism, hypercortisolism, drug-induced were ruled out. Sodium correction to be done not more than 8-10 mEq in the first 24 hours. She received up to 3 L of normal saline, which should improve sodium if due to dehydration. No suspicion for SIADH, but acute illness is known to cause SIADH, which is hard to assess given the inability to collect samples. However, she needs to be monitored closely on the floor, and if she develops any neurological signs, should act swiftly. Plan: 1. Dizziness: likely due to dehydration, and hyponatremia. - Recheck Orthostats. - If she develops any severe symptoms, would have to transfer the pt to ICU for closer monitoring. 2. Hypotonic hyponatremia- likely due to decreased solute intake, and severe illness. - Check Urine lytes, which is not so helpful now; given her NS. - Recheck BEP in 6hrs. Dont correct more than 8 meq/24hrs. 3. Acute bronchitis- Although, pneumonia is in the differentials, it appears like the pt might have had viral bronchitis. Flu negative. Other differentials, legionella or atypicals. - Follow up legionella ag, and sputum culture. - No steroids. - TRC nebs, including albuterol nebs as needed. - If the pt has worsening symptoms, consider emperic abx. 4. Palpitations- due to orthostatic reason. No further evaluation is needed at this time, unless has new complaints. Obtain records from the streaming media specialist, regarding the valvular defects. 5. Pain Mx- with vicodin and soma, at a lower dose considering dizziness. Would hold off, if she has symptoms. Housekeeping- DVT PPx- Heparin sc Pain management pathwya Full code Med rec: Anti-hypertensives held at this time. Paula Hernandez MD 09/26/17 1151: Attending Review Statement Attending Statement Attending MD Statement: examined this patient, discuss w/resident/PA/CROSSBOW MAKER, agreed w/resident/PA/CROSSBOW MAKER, reviewed EMR data (avail), discussed with nursing, amended to note Attending Assessment/Plan: Patient seen and examined. Presents with complaints of lightheadedness. She reports that she has had upper respiratory symptoms for the past few days with no improvement after taking amoxicillin. In the emergency room she was found afebrile hemodynamically stable. Due to persistent complaint of dizziness she was admitted to the inpatient service. On examination she is alert and oriented 3. She is not in acute distress. Heart sounds are regular with notable normal. She has diffuse rhonchi bilaterally. Abdomen is soft and nontender. She has no peripheral edema. Laboratory data shows no evidence of pneumonia on imaging. Rapid flu test was negative. She has no leukocytosis on labs. She is noted to be hyponatremic. Problems: 1. Acute bronchitis; likely viral 2. Hyponatremia; likely due to hypovolemia from poor oral intake 3. Dizziness Plan: -Admit to inpatient General medical service. -Hydrate with normal saline at 100 cc an hour for 1 L. -Check orthostatic blood pressure. -Begin TRCs
[2017-09-26] MEDS ORDERED: HYDROCODON-ACE1 EAC1 PO (08:27)
[2017-09-26 09:23] VITALS: BP 142/88
[2017-09-26 15:09] VITALS: BP 110/80
[2017-09-26 22:37] VITALS: BP 120/70
[2017-09-27 06:51] VITALS: BP 134/68
[2017-09-27 06:59] VITALS: BP 110/70
--- NOTE | 2017-09-27 09:10 | PN- Housestaff ---
Shelli JACKSON,Cynthia 09/27/17 0910: Subjective Follow-up For: 1. lightheadedness 2. Bronchitis 3. Hyponatremia 4. Hypertension 5. Hyperlipidemia 6. Thoracic outlet syndrome Subjective: Patient is seen and examined at bedside, she reports improvement of her lightheadedness, and improvement in her appetite reports having constipation for 4 days. Review of Systems Constitutional: Reports: chills, weakness. Cardiovascular: Reports: palpitations. Respiratory: Reports: see HPI, cough, short of breath. Gastrointestinal: Reports: constipation. Genitourinary: Denies: no symptoms. Neurological/Psychological: Reports: see HPI. Objective Last 24 Hrs of Vital Signs/I&O Vital Signs Date Time Temp Pulse Resp B/P B/P Pulse O2 O2 Flow FiO2 Mean Ox Delivery Rate 09/27 0651 98.1 85 20 134/68 96 Room Air 09/27 0000 Room Air 09/26 2237 98.6 86 20 120/70 92 Room Air 09/26 1600 93 Room Air 09/26 1541 Room Air Room Air 09/26 1509 97.9 92 20 110/80 93 Room Air 09/26 1458 93 Room Air Room Air Intake & Output 09/27 1600 09/27 0800 09/27 0000 Intake Total 880 1130 Output Total Balance 880 1130 Intake, IV 400 650 Intake, Oral 480 480 Physical Exam General Appearance: Alert, Oriented X3, Cooperative, No Acute Distress HEENT: Atraumatic, PERRLA, EOMI, Mucous Membr. moist/pink Cardiovascular: Regular Rate, Normal S1, Normal S2, No Murmurs Lungs: Clear to Auscultation, Normal Air Movement Abdomen: Normal Bowel Sounds, Soft, No Tenderness Neurological: Normal Speech Current Medications: Current Medications Sig/Cathie Start time Last Medication Dose Route Stop Time Status Admin Acetaminophen 650 MG BID PRN 09/26 0830 AC 09/27 PO 0604 Albuterol Sulfate 3 ML Q4H PRN 09/26 0745 AC 09/26 INH 1458 Atorvastatin Calcium 40 MG 1700 09/26 1700 AC 09/26 PO 1550 Bisacodyl 5 MG DAILY 09/27 1154 AC PO Carisoprodol 350 MG TID PRN 09/26 0830 AC 09/27 PO 0242 Gabapentin 800 MG Q8 09/26 1400 DC PO Gabapentin 800 MG Q8 09/26 1400 AC 09/27 PO 0558 Guaifenesin 10 ML Q4P PRN 09/26 0815 AC 09/27 PO 1155 Heparin Sodium 5,000 UNIT Q8 09/26 1400 AC 09/27 (Porcine) SC 0558 Hydrocodone Bitart/ 1 TAB BID PRN 09/26 0830 AC 09/26 Acetaminophen PO 1555 Omeprazole 20 MG DAILY AC 09/26 0805 AC 09/27 PO 0558 Ondansetron HCl 4 MG Q6 PRN 09/26 0815 AC 09/26 PO 0832 Polyethylene Glycol 17 GM DAILY 09/27 1154 AC PO Sodium Chloride 1,000 ML Q10H 09/26 1630 DC 09/26 IV 09/27 0229 1631 Last 24 Hrs of Lab/Narinder Results Last 24 Hrs of Labs/Mics: Laboratory Tests 09/27/17 0820: Anion Gap 11, Estimated GFR > 60, BUN/Creatinine Ratio 16.7 09/26/17 1510: Urine Osmolality 159 L, Ur Random Creatinine 19.7, Ur Random Sodium 40, Ur Random Potassium 6.4, Fraction Sodium Excret 0.8 Microbiology 09/26 1510 URINE ROUT: Legionella Antigen - COMP 09/26 151 URINE ROUT: Streptococcus pneumoniae Antigen (M - COMP Assessment/Plan Assessment: 62-year-old femalemedical history of hypertension, hyperlipidemia, thoracic outlet syndrome came to [place] ED complaining of multiple episodes of lightheadedness and palpitation at rest and on ambulation for 2 days, on admission the patient was found to have hyponatremia which improved the next day. Patient also complained of sore throat and upper respiratory infection for 5 days and she was not able to have proper oral intake because of sore throat which might have contributed to her hyponatremia. Lightheadedness/hyponatremia Improved Most likely secondary to hyponatremia Had urinary sodium was more than 40 and urine osmolality was low which makes poor oral intake the most likely cause Troponin and EKG were normal Acute Bronchitis: Chest x-ray was negative Patient is afebrile Continue to watch off antibiotics Continue guaifenesin Continue Cepacol lozeng fe sore throat Hypertension, hyperlipidemia, thoracic outlet syndrome Will continue home doses of losartan, verapamil, Crestor, gabapentin Patient is full code DVT prophylaxis with subcutaneous heparin Heart healthy diet Problem List: 1. Bronchitis 2. Weakness 3. Hyponatremia Pain Ratin Pain Location: n/a Pain Goal: Remain pain free Pain Plan: per pathway Tomorrow's Labs & Rationales: cbc bep DVT/Prophylaxis: pharmacological Radha Terrazas MD 09/27/17 1429: Attending MD Review Statement Attending Statement Attending MD Statement: examined this patient, discuss w/resident/PA/TEST ENGINEERING TECHNICIAN, agreed w/resident/PA/TEST ENGINEERING TECHNICIAN, reviewed EMR data (avail) Attending Assessment/Plan: 62F PMH hypertension, hyperlipidemia, thoracic outlet syndrome admitted for acute bronchitis, hyponatremia, and dizziness. Had several episodes of dizzines prior to admission, along with hyponatremia likely secondary to decreased PO intake and dehydration. Sodium has normalized, as has BP. Patient reports still feeling a bit dizzy today. She has a cough but is otherwise well with stable vitals and normal labs. 1. Acute bronchitis 2. Hyponatremia 3. Dizziness Plan - Continue on general medicine - Gentle IV hydration - Continue home medications - Follow cultures - DVT PPx - Anticipated discharge tomorrow. Please send CMR to pharmacy for review.
[2017-09-27] MEDS ORDERED: GUAIFENESI100 MG/5 M PO (11:30)
--- NOTE | 2017-09-27 11:32 | Patient Discharge Instructions ---
Discharge Instructions General Discharge Information You were seen/treated for: 1- ACUTE BRONCHITIS 2- LIGHT HEADNESS 3- HYPONATREMIA Special Instructions: 1- PLEASE FOLLOW UP WITH YOUR PCP RUDDY 1 WEEK OF DISCHARGE Diet Continue normal diet: Yes Activity Full Activity/No Limits: Yes Acute Coronary Syndrome Inclusion Criteria At DC or during hospital stay patient has or had the following: ACS DIAGNOSIS No Discharge Core Measures Meds if any: Prescribed or Continued at Discharge Meds if any: NOT Prescribed or Continued at Discharge Congestive Heart Failure Inclusion Criteria At DC or during hospital stay patient has or had the following: CHF DIAGNOSIS No Discharge Core Measures Meds if any: Prescribed or Continued at Discharge Meds if any: NOT Prescribed or Continued at Discharge Cerebrovascular accident Inclusion Criteria At DC or during hospital stay patient has or had the following: CVA/TIA Diagnosis No Discharge Core Measures Meds if any: Prescribed or Continued at Discharge Meds if any: NOT Prescribed or Continued at Discharge Venous thromboembolism Inclusion Criteria VTE Diagnosis No VTE Type NONE VTE Confirmed by (Test) NONE Discharge Core Measures - Per Current guidelines, there needs to be overlap - treatment for the first 5 days of Warfarin therapy. - If discharged on Warfarin prior to 5 days of - overlap therapy, the patient will need to be - assessed for post discharge needs including - *Post discharge parental anticoagulation - *Warfarin and/or parental anticoagulation education - *Follow up date to check INR post discharge At least 5 days overlap therapy as Inpatient No Meds if any: Prescribed or Continued at Discharge Note: Overlap Therapy is Warfarin and Anticoagulant Meds if any: NOT Prescribed or Continued at Discharge
--- NOTE | 2017-09-27 14:01 | Discharge Summary ---
Visit Information Visit Dates Admission Date: 09/26/17 Discharge Date: 09/28/17 Hospital Course Course Attending Physician: Radha Terrazas MD Primary Care Physician: Karely JACKSON,[facility] Course: Ms Almaguer is a 62 year old woman who has a PMHx of HTN, HLD, thoracic outlet syndrome, ? valvular defect came in w/ chief concern of acute onset of nonproductive cough, runny nose 3 days ago, for which she was prescribed amoxicillin at an urgent care clinic. She reported decreased by mouth intake in the last 3 days, since she was sick, and did not have any improvement in her symptoms. She did not have any fever, shortness of breath, chest pain. In the last 24 hours or so, she reported being orthostatically dizzy, which progressed to being dizzy even at rest. She did not have any loss of consciousness, vision changes, seizures. She reported palpitations, which was posturally related. Nonsmoker, nonalcoholic, no drug abuse; no new medication use especially changes in gabapentin or opiates. No history of polydipsia, diuretic use. No diarrhea or vomiting reported. At the time of admission, temperature 98.3, pulse rate 70, respiration 20, blood pressure 123/69, pulse ox 96% on 2 L. Pertinent lab findings-W BC 4.0, platelets 193, hemoglobin 14.1. Sodium 123 ( mild hyponatremia), which was normal 139 in 01/2017. Potassium 3.7, hypochloremia 80 (hypochloremia likely decreased solute intake). Renal function BUN 12, creatinine 0.6, bicarbonate 30 with anion gap of 13. Lactic acid 1.7. Cardiac enzyme-troponin 0.01. Liver chemistries were within normal limits. TSH 4.7, free T4 1.1. Cortisol AM is within normal limits. Influenza swab negative. Serum osmolality 255. Urine osmolality could not be measured, since the patient received fluids to these tests were ordered. Chest x-ray revealed increased lung markings on the right lower lobe. EKG revealed normal sinus rhythm, QTC 451, no ST-T wave changes were noted. Lightheadedness/hyponatremia Improved Most likely secondary to hyponatremia with poor oral intake Her urinary sodium was more than 40 and urine osmolality was low which makes poor oral intake the most likely cause Troponin and EKG were normal Acute Bronchitis: Was Startedon azithromycin 500 mg, the patient was discharged on 250 mg by mouth daily to finish a course of 5 days, Guafenisen, Cepacol lozenges Chest x-ray was negative Patient was afebrile Hypertension, hyperlipidemia, thoracic outlet syndrome She was kept on home doses of losartan, verapamil, Crestor, gabapentin Patient was discharged home to finish a 5 day course of azithromycin, and she was advised to follow-up with her PCP in 1 week of discharge Patient is full code DVT prophylaxis with subcutaneous heparin Heart healthy diet Problem List: Allergies: Coded Allergies: clarithromycin (From BIAXIN) (HEADACHE 01/10/17) codeine (DIZZY, NAUSEA 01/10/17) ramelteon (From ROZEREM) (UNKNOWN 12/24/15) risperidone (From RISPERDAL) (UNKNOWN 12/24/15) Disposition Summary Disposition Principal Diagnosis: Acute bronchitis Additional Diagnosis: Light headedness Hyponatremia Discharge Disposition: home or self care Discharge Instructions General Discharge Information Code Status: Full Code Patient's Diet: Heart healthy diet Patient's Activity: As tolerated Follow-Up Instructions/Appts: PLEASE FOLLOW UP WITH YOUR PCP IIN 1 WEEK OF DISCHARGE Medications at Discharge Discharge Medications: Stop taking the following medications: Amoxicillin (Amoxicillin) 500 MG CAPSULE ORAL DAILY Continue taking these medications: Carisoprodol (Carisoprodol) 350 MG TABLET 1 Tablet ORAL THREE TIMES DAILY Qty = 90 Comments: Last Taken:09/28/17 Time: 1030AM Eszopiclone (Eszopiclone) 2 MG TABLET 1 Tablet ORAL Every night Qty = 30 Verapamil HCl (Verapamil ER) 240 MG CAP24H.PEL 1 Capsule ORAL DAILY Qty = 30 Comments: NOT GIVEN Rosuvastatin Calcium (Crestor) 20 MG TABLET 1 Tablet ORAL DAILY Qty = 30 Comments: NOT GIVEN Gabapentin (Neurontin) 800 MG TABLET 800 Milligram ORAL THREE TIMES DAILY Comments: Last Taken:09/28/17 Time:530AM Losartan (Cozaar) 100 MG TABLET Unknown Dose ORAL DAILY Hydrocodone/Acetaminophen (Hydrocodon-Acetaminophn 10-325) 10 MG-325 MG TABLET 1 Tablet ORAL TWICE DAILY as needed for PAIN Qty = 60 Comments: Last Taken: NOT GIVEN Time: Start taking the following new medications: Guaifenesin (Guaifenesin) 100 MG/5 ML LIQUID 10 Milliliters ORAL EVERY 4 HOURS NEEDED as needed for COUGH Qty = 1 No Refills Instructions: . Comments: Last Taken:09/28/17 Time: 1030AM Azithromycin (Azithromycin) 250 MG TABLET 1 Dose Pack ORAL As Directed Qty = 6 No Refills Instructions: 1 tab po daily for 4 days starting tomorrow 09/29/16 Comments: Last Taken:09/28/17 Time:1;30PM Copies To: Jonathan Cali MD
[2017-09-27 14:51] VITALS: BP 130/90
[2017-09-27 21:23] VITALS: BP 126/86
[2017-09-28 06:55] VITALS: BP 136/88
--- NOTE | 2017-09-28 07:15 | PN- Housestaff ---
See Addendum Subjective Follow-up For: 1. lightheadedness 2. Bronchitis 3. Hyponatremia 4. Hypertension 5. Hyperlipidemia 6. Thoracic outlet syndrome Subjective: Patient is seen and examined at bedside, she reports improvement of her lightheadedness, and improvement in her appetite . However she still endorses dry cough and sore throat Review of Systems Constitutional: Denies: no symptoms. Cardiovascular: Denies: no symptoms. Respiratory: Reports: cough, short of breath. Gastrointestinal: Denies: no symptoms. Skin: Reports: lesions (multiple small 2X2 erythematou). Objective Last 24 Hrs of Vital Signs/I&O Vital Signs Date Time Temp Pulse Resp B/P B/P Pulse O2 O2 Flow FiO2 Mean Ox Delivery Rate 09/28 1035 95 Room Air Room Air 09/28 0655 97.8 70 18 136/88 96 Room Air 09/28 0000 Room Air 09/27 2123 98.6 84 18 126/86 93 09/27 1451 98.6 85 20 130/90 94 Room Air 09/27 1347 96 Room Air Intake & Output 09/28 1600 09/28 0800 09/28 0000 Intake Total 1320 480 Output Total Balance 1320 480 Intake, IV 600 Intake, Oral 720 480 Physical Exam General Appearance: Alert, Oriented X3, Cooperative, No Acute Distress Skin: multiple 2X2 cm erythematouos lesions on the wriste and left leg HEENT: Atraumatic, PERRLA, EOMI, Mucous Membr. moist/pink Neck: Supple, No JVD Cardiovascular: Regular Rate, Normal S1, Normal S2, No Murmurs Lungs: Clear to Auscultation, Normal Air Movement Abdomen: Normal Bowel Sounds, Soft, No Tenderness Neurological: Normal Speech Extremities: No Clubbing, No Cyanosis, No Edema Vascular: Normal Pulses Assessment/Plan Assessment: 62-year-old female with past medical history of hypertension, hyperlipidemia, thoracic outlet syndrome came to [facility] complaining of multiple episodes of lightheadedness and palpitation at rest and on ambulation for 2 days, on admission the patient was found to have hyponatremia which improved the next day. Patient also complained of sore throat and upper respiratory infection for 5 days and she was not able to have proper oral intake because of sore throat which might have contributed to her hyponatremia. Lightheadedness/hyponatremia Improved Most likely secondary to hyponatremia with poor oral intake Her urinary sodium was more than 40 and urine osmolality was low which makes poor oral intake the most likely cause Troponin and EKG were normal Acute Bronchitis: still complains of dry cough Start azithromycin 500 mg today, the patient will be discharged on 250 mg by mouth daily to finish a course of 5 days Chest x-ray was negative Patient is afebrile Continue guaifenesin Continue Cepacol lozeng fe sore throat Hypertension, hyperlipidemia, thoracic outlet syndrome Will continue home doses of losartan, verapamil, Crestor, gabapentin Patient is a stable for discharge home today on an azithromycin course total of 5 days Patient is full code DVT prophylaxis with subcutaneous heparin Heart healthy diet Problem List: 1. Bronchitis 2. Weakness 3. Hyponatremia Pain Ratin Pain Location: n/a Pain Goal: Remain pain free Pain Plan: per pathway Tomorrow's Labs & Rationales: none DVT/Prophylaxis: mechanical, pharmacological
[2017-09-28 10:16] LABS: ABSOLUTE BASOPHIL COUNT 0 /CUMM (0.0-0.2); ABSOLUTE EOSINOPHIL COUNT 0 /CUMM (0.0-0.7); ABSOLUTE GRANULOCYTE CT 2.4 /CUMM (1.4-6.5); ABSOLUTE LYMPH COUNT 1.3 /CUMM (1.2-3.4); ABSOLUTE MONOCYTE COUNT 0.3 /CUMM (0.10-0.60); BASOPHIL % 0.4 % (0.0-2.0); EOSINOPHIL % 0.1 % (0-5); GRANULOCYTE % 59.4 % (42.2-75.2); MEAN CORPUSCULAR HGB 31.5 PG (27.0-31.0); MEAN CORPUSCULAR VOLUME 90.1 FL (81.0-99.0); MEAN PLATELET VOLUME 7.7 FL (7.4-10.4); PLATELET COUNT 177 /CUMM (130-400); RBC DISTRIBUTION WIDTH 13.6 % (11.5-14.5); RED BLOOD CELL CT 3.73 /CUMM (4.20-5.40); WHITE BLOOD CELL COUNT 4.1 /CUMM (4.8-10.8)
[2017-09-28 10:37] LABS: HEMATOCRIT 33.6 % (37-47)
[2017-09-28] MEDS ORDERED: AZITHROMYCIN250 M1 PO (12:05)
[2017-09-28] MEDS ORDERED: GUAIFENESI100 MG/5 M PO (12:06)
[2017-09-28 14:17] VITALS: BP 142/80
== END 2017-09-28 14:40 | DRG 202 ==
LOC: ERH 04:17 → ERHI 06:07 → 2NA 06:07 → ENRESERV 08:24 → ENTRNSPT 08:42 → EDTRNSPT 08:56 → EDTRNSPTSTS 08:56 → 2NA 09:02 → CMPTRNSPT 09:17 → 2NA 09-27 10:18 → ENPENDDIS 09-28 11:53 → ENTRNSPT 09-28 14:14 → EDTRNSPTSTS 09-28 14:23 → CMPTRNSPT 09-28 14:30 → 2NA 09-28 14:40
PROVIDERS: Pediatrics; Student in an Organized Health Care Education/Training Program
DX: J20.9 Acute bronchitis, unspecified (principal); E87.1 Hypo-osmolality and hyponatremia; E87.8 Other disorders of electrolyte and fluid balance, not elsewhere classified; G54.0 Brachial plexus disorders; I10 Essential (primary) hypertension; E78.5 Hyperlipidemia, unspecified; R73.03 Prediabetes; R20.0 Anesthesia of skin; M25.511 Pain in right shoulder; G89.29 Other chronic pain; L30.9 Dermatitis, unspecified
CPT/HCPCS: 2NASP; 84133; 84300; 36415; 71045; 82436; 82570; 87070; 87449; 87450; 87804; 87804-59; 93005; 93010; 96361; 96374; J0456; J1644; J2405; J3101

== ENCOUNTER 2018-01-04 13:18 | Emergency (ER) | payer OTHER, MEDICARE ==
[~2018-01-04] VITALS: Ht 165.1 cm; Wt 102.1 kg
[~2018-01-04 13:18] MED LIST changes: +ACYCLOVIR200 MG/52 PO; +AMOXICILLIN500 M2 PO; +AZITHROMYCIN250 M1 PO; +CELECOXIB200 M1 PO; +CETIRIZINE HCL5 M1 PO; +CLARITIN10 M1 PO; +COMPAZINE10 M1 PO; +COZAAR100 M1 PO; +DOXYCYCLINE MO100 M1 PO; +FLONASE ALLERG9.9 ML NS; +GUAIFENESI100 MG/5 M PO; +HYDROCODON-ACE1 EAC1 PO; +KEFLEX500 M1 PO; +METOPROLOL SUCC25 M1 PO; +NASONEX17 GM NASB; +NEURONTIN800 M2 PO; +PERIOGARD473 ML PO; +REGLAN10 M1 PO
--- NOTE | 2018-01-04 17:30 | ED GI/GU/ABDOMINAL COMPLAINT ---
History of Present Illness General Chief Complaint: General Adult Stated Complaint: URI X 10 DYS NOW VOMITING Source: patient Exam Limitations: no limitations Vital Signs & Intake/Output Vital Signs & Intake/Output Vital Signs Date Time Temp Pulse Resp B/P B/P Pulse O2 O2 Flow FiO2 Mean Ox Delivery Rate 01/05 1812 Room Air 01/05 1812 98.6 72 18 142/92 96 Room Air 01/04 1327 98.7 87 20 157/78 97 Room Air Allergies Coded Allergies: clarithromycin (From BIAXIN) (HEADACHE 11/03/17) codeine (DIZZY, NAUSEA 11/03/17) ramelteon (From ROZEREM) (NAUSEA, DIZZY 11/24/17) risperidone (From RISPERDAL) (NAUSEA, DIZZY 11/24/17) Reconcile Medications Acyclovir 200 MG/5 ML ORAL.SUSP 5 ML PO 5XDAILY ANTIVIRAL (Reported) Azithromycin (Zithromax) 250 MG TABLET 1 DP PO AD SINUS 2 the first day followed by 1 for days 2-5 Carisoprodol 350 MG TABLET 1 TAB PO TID MUSCLE SPASMS (Reported) Celecoxib 200 MG CAPSULE 1 CAP PO BID PAIN/INFLAMMATION (Reported) Cephalexin (Keflex) 500 MG CAPSULE 1 CAP PO TID uti Chlorhexidine Gluconate (Periogard) 0.12 % MOUTHWASH 15 ML PO BID GUMS ( Reported) Doxycycline Monohydrate 100 MG TABLET 1 TAB PO BID ABX (Reported) Eszopiclone 2 MG TABLET 1 TAB PO QPM SLEEP (Reported) Gabapentin (Neurontin) 800 MG TABLET 800 MG PO TID NERVE PAIN (Reported) Hydrocodone/Acetaminophen (Hydrocodon-Acetaminophn 10-325) 10 MG-325 MG TABLET 1 TAB PO BID PRN PAIN (Reported) Losartan (Cozaar) 100 MG TABLET 1 TAB PO DAILY HIGH BLOOD PRESSURE (Reported) Metoclopramide HCl (Reglan) 10 MG TABLET 1 TAB PO BID PRN Migraine 30 minutes before meals and bedtime Metoprolol Succinate 25 MG TAB 1 TAB PO DAILY HEART/BP (Reported) Ondansetron (Zofran Odt) 4 MG TAB.RAPDIS 1 TAB SL TID PRN NAUSEA Prochlorperazine Maleate (Compazine) 10 MG TABLET 1 TAB PO Q6P PRN nausea Rosuvastatin Calcium (Crestor) 20 MG TABLET 1 TAB PO DAILY CHOLESTEROL ( Reported) Triage Note: PT C/O H/A, PRODUCTIVE COUGH, VOMITING, NAUSEA X10 DAYS. SAW PMD AND PUT ON ANTIBIOTIC, HAD CXR WHICH WAS NEG. NO FLU SWAB DONE Triage Nurses Notes Reviewed? yes ? n Is pt currently ? No Onset: Gradual Duration: week(s): Timing: recent history Quality/Severity: moderate HPI: 62yo female presents to ED complaining of vomiting beginning last night. Patient reports 2 episodes of nonbilious nonbloody vomiting, she still feels nauseous. Patient reports 10 days of cough and congestion which was treated with cefuroxime, however patient feels no better. Cough is productive of white sputum. Patient also reports rhinorrhea, congestion, intermittent dizziness, headache, chills. Patient reporting bilateral chest pressure and dyspnea since onset of symptoms 10 days ago. She has had loose stools however denies dairrhea. She denies fevers, urinary symptoms, abdominal pain, constipation. (Magdalene Vazquez) Past History Travel History Traveled to [place] past 21 day No Medical History Any Pertinent Medical History? 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 No (Magdalene Vazquez) Review of Systems Review of Systems Constitutional: Reports: see HPI. EENTM: Reports: see HPI. Respiratory: Reports: see HPI. Cardiovascular: Reports: see HPI. GI: Reports: see HPI. Genitourinary: Reports: no symptoms. Musculoskeletal: Reports: no symptoms. Skin: Reports: no symptoms. Neurological/Psychological: Reports: see HPI. Hematologic/Endocrine: Reports: no symptoms. Immunologic/Allergic: Reports: no symptoms. All Other Systems: Reviewed and Negative (Magdalene Vazquez) Physical Exam Physical Exam General Appearance: well developed/nourished, no apparent distress, alert, awake Head: atraumatic, normal appearance Eyes: Bilateral: normal appearance, PERRL, EOMI. Ears, Nose, Throat, Mouth: hearing grossly normal, moist mucous membrane, Tympanic normal, frontal sinus tenderness Neck: normal inspection, supple, full range of motion Respiratory: normal breath sounds, no respiratory distress, lungs clear Cardiovascular: regular rate/rhythm Gastrointestinal: normal bowel sounds, soft, non-tender, no organomegaly Back: normal inspection, normal range of motion Extremities: normal range of motion Neurologic/Psych: awake, alert, oriented x 3 Skin: intact, normal color, warm/dry Core Measures ACS in differential dx? Yes Sepsis Present: No Sepsis Focused Exam Completed? No (Tonya WAN,Magdalene Dill) Progress Differential Diagnosis: AMI, bowel obstruction, gastritis, gastroenteritis, influenza, PNA, bronchitis Plan of Care: Orders Procedure Date/time Status TROPONIN LEVEL 01/04 1730 Complete COMPREHENSIVE METABOLIC PANEL 01/04 1730 Complete CBC WITHOUT DIFFERENTIAL 01/04 1730 Complete EKG 01/04 173 Active RAPID VIRAL INFLUENZA A 01/04 1329 Complete Laboratory Tests 01/04/18 1818: Anion Gap 15, Estimated GFR > 60, BUN/Creatinine Ratio 22.0, Glucose 99, Calcium 10.7 H, Total Bilirubin 0.7, AST 18, ALT 22, Alkaline Phosphatase 104, Troponin I < 0.01, Total Protein 8.5 H, Albumin 5.2 H, Globulin 3.3, Albumin/Globulin Ratio 1.6, CBC w Diff NO MAN DIFF REQ, RBC 4.76, MCV 92.0, MCH 30.5, MCHC 33.1, RDW 13.5, MPV 8.1, Gran % 59.5, Lymphocytes % 31.6, Monocytes % 7.3, Eosinophils % 1.4, Basophils % 0.2, Absolute Granulocytes 3.5, Absolute Lymphocytes 1.9, Absolute Monocytes 0.4, Absolute Eosinophils 0.1, Absolute Basophils 0 Microbiology 01/04 1331 NASOPHARYN: Influenza Virus A & B Rapid Smear - COMP Patient complaining of mild chest tightness since onset of her URI symptoms 10 days ago. EKG in sinus rhythm and troponin enzymes negative. Chest x-ray without acute evidence for pneumonia. Patient has sinus tenderness on physical exam. Patient's symptoms have been present for over 10 days, not responsive to cephalosporin antibiotic. SHe may respond better to azithromycin, patient reports improvement following a Z pack in the past. Patient has had no episodes of vomiting while being here in the emergency department. He does report persistent nausea. Will medicate with IV fluids and Zofran for the symptoms. There is a low suspicion for acute cardiac pathology at this time given patient' s symptom duration in setting of acute upper respiratory tract infection. Patient to begin azithromycin and Zofran for her symptoms and follow up with primary care doctor. She was given strict return precautions. The patient agrees with this plan. The patient was discussed with Dr. Taylor who agrees with this plan. The patient was signed out to SAVAGE Rausch pending IV fluids and Zofran. (Tonya WAN,Magdalene Dill) 01/04/2018 9:15:52 PM patient was reassessed once IV fluids were complete. Patient feeling improved. Patient comfortable being discharged home and following up with her primary care physician. She is informed that prescription was sent to the pharmacy. Patient is pain-free at this time. Case was discussed previously with Dr. Taylor and he agrees with plan. Patient is nontoxic, vitals are stable. (Miracle WAN,Alda) Diagnostic Imaging: Viewed by Me: Radiology Read. Discussed w/RAD: Radiology Read. CXR Impression: PATIENT: NOLVIA MAYER PRESENT AGE: 62 PATIENT ACCOUNT NO: [id number] : 56 LOCATION: [facility] ORDERING PHYSICIAN: Magdalene WAN SERVICE DATE: 01/04/18 EXAM TYPE: RAD - XRY-CHEST XRAY, TWO VIEWS EXAMINATION: XR CHEST CLINICAL INFORMATION: Dyspnea and cough. COMPARISON: Chest x-ray dated 01/04/2018. TECHNIQUE: 2 views of the chest were obtained. FINDINGS: No airspace opacities or pleural effusions are seen. The cardiomediastinal silhouette is normal. No acute osseous abnormality is seen. There is a rightward curvature of the thoracic spine. IMPRESSION: Clear lungs. No acute process. DICTATED BY: Logan Singh MD DATE/TIME DICTATED:01/04/181752 MAMMOGRAPHY TECH:ELEANOR DATE/TIME TRANSCRIBED:01/04/181752 CONFIDENTIAL, DO NOT COPY WITHOUT APPROPRIATE AUTHORIZATION. <Electronically signed in Other Vendor System> SIGNED BY: Logan Singh MD 01/04/18 3358 Initial ED EKG: sinus rhythm @80bpm, nonspecific ST changes Prior EKG: unchanged (12/18/17) Hand-Off Endorsed To: Alda Linton Endorsed Time: 1956 Pending: other (IV fluids) (Tonya WAN,Magdalene Dill) Departure Departure Disposition: HOME OR SELF CARE Condition: Stable Clinical Impression Primary Impression: Sinusitis Qualifiers: Sinusitis location: unspecified location Chronicity: acute Recurrence: non-recurrent Qualified Code: J01.90 - Acute sinusitis, unspecified Secondary Impressions: Nausea & vomiting Qualifiers: Vomiting Intractability: non-intractable Referrals: Jonathan Cali MD (PCP/Family) Additional Instructions: Take full course of antibiotics. Take Zofran as prescribed as needed for nausea. Follow-up with her primary care doctor this week. Return with any worsening symptoms or concerns such as high fevers, persistent vomiting despite uses Zofran, chest pain, shortness of breath. Please note that there might be incidental findings in your evaluation that are unrelated to the current emergency department visit. Please notify your primary care doctor about this emergency department visit in order to obtain and review all of the testing performed so that these incidental findings can be monitored as needed. If you had an x-ray performed, please understand that some fractures may not be seen on the initial set of x-rays. If your symptoms persist you might need a repeat set of x-rays to check for such a fracture. If you had a laceration evaluated, please understand that foreign bodies such as glass or wood may not be visible to the naked eye or on plain x-rays. If the wound becomes red, swollen, increasingly more painful or if there is any drainage from the wound, please have it reevaluated by a physician for the possibility of a retained foreign body. If you're unable to follow up as outlined in the discharge instructions please return to the emergency department. Thank you for choosing the Emergency Department for your care. It was a pleasure to serve you today. Departure Forms: Customer Survey General Discharge Information Prescriptions: Current Visit Scripts Azithromycin (Zithromax) 1 DP PO AD #6 TAB 2 the first day followed by 1 for days 2-5 Ondansetron (Zofran Odt) 1 TAB SL TID PRN NAUSEA #10 TAB (Tonya WAN,Magdalene Dill) PA/PERMIT AGENT Co-Sign Statement Statement: ED Attending supervision documentation- [] I saw and evaluated the patient. I have also reviewed all the pertinent lab results and diagnostic results. I agree with the findings and the plan of care as documented in the PA's/PERMIT AGENT's documentation. [x] I have reviewed the ED Record and agree with the PA's/PERMIT AGENT's documentation. [] Additions or exceptions (if any) to the PAs/PERMIT AGENT's note and plan are summarized below: [] (Brandon JACKSON,Eber Orantes)
--- NOTE | 2018-01-04 17:57 | RADIOLOGY REPORT ---
EXAMINATION: XR CHEST CLINICAL INFORMATION: Dyspnea and cough. COMPARISON: Chest x-ray dated 01/04/2018. TECHNIQUE: 2 views of the chest were obtained. FINDINGS: No airspace opacities or pleural effusions are seen. The cardiomediastinal silhouette is normal. No acute osseous abnormality is seen. There is a rightward curvature of the thoracic spine. IMPRESSION: Clear lungs. No acute process.
[2018-01-04 18:12] VITALS: BP 142/92
[2018-01-04 18:41] LABS: ABSOLUTE BASOPHIL COUNT 0 /CUMM (0.0-0.2); ABSOLUTE EOSINOPHIL COUNT 0.1 /CUMM (0.0-0.7); ABSOLUTE GRANULOCYTE CT 3.5 /CUMM (1.4-6.5); ABSOLUTE LYMPH COUNT 1.9 /CUMM (1.2-3.4); ABSOLUTE MONOCYTE COUNT 0.4 /CUMM (0.10-0.60); BASOPHIL % 0.2 % (0.0-2.0); EOSINOPHIL % 1.4 % (0-5); GRANULOCYTE % 59.5 % (42.2-75.2); HEMATOCRIT 43.8 % (37-47); MEAN CORPUSCULAR HGB 30.5 PG (27.0-31.0); MEAN CORPUSCULAR HGB CONC 33.1 G/DL (33.0-37.0); MEAN PLATELET VOLUME 8.1 FL (7.4-10.4); PLATELET COUNT 288 /CUMM (130-400); RBC DISTRIBUTION WIDTH 13.5 % (11.5-14.5); RED BLOOD CELL CT 4.76 /CUMM (4.20-5.40)
[2018-01-04] MEDS ORDERED: ZOFRAN ODT4 M1 SL (19:19)
[2018-01-04] MEDS ORDERED: ZITHROMAX250 M2 PO (19:19)
== END 2018-01-04 23:25 ==
LOC: ERH 13:18
PROVIDERS: Physician Assistant
DX: J32.9 Chronic sinusitis, unspecified (principal); R11.2 Nausea with vomiting, unspecified
CPT/HCPCS: 71046; 87804; 87804-59; 93005; 93010; 96374; J2405